=== PATIENT | female | born 1995 | race American Indian/Alaskan Native ===

== ENCOUNTER 2016-11-13 07:46 | Emergency (ER) | payer OTHER ==
[2016-11-13] MEDS ORDERED: ATIVAN IM PRN (08:30)
[2016-11-13] MEDS ORDERED: HALDOL IM PRN (08:30)
[2016-11-13] MEDS ORDERED: BENADRYL IM PRN (08:30)
--- NOTE | 2016-11-13 08:35 | Emergency Department Report ---
HPI - General Chief Complaint: Psych Time Seen by Provider: 11/13/16 08:19 - HPI HPI: Room 14 The patient is a 21-year-old female presenting with a chief complaint of "nervous breakdown." The patient's mother states she received a telephone call from the patient's boyfriend stating that "something was going on" with the patient. The mother states she could hear the patient screaming in the background. The boyfriend stated that the patient was seen days. Was in the house and she was screaming and urinating on the floor. The mother states when she arrived she found the patient outside him to take off her clothes. The patient states she felt as though there was a demon leaving her body. The mother states she had the placed the patient in the back seat of the car with the child [place] so the patient would not attempt to open the door. The patient currently states she feels fine. Patient currently denies suicidal or homicidal ideation. Patient does admit to visual hallucinations believing there are demons inside of her. The patient states she is having auditory hallucinations talking about her friends and family. The patient's mother has a history of bipolar disorder, depression, paranoid schizophrenia and schizoaffective disorder Location: Mental state Duration: [see above] Quality: Bizarre behavior Severity: Moderate Modifying factors: [see above] Context: [see above] Mode of transportation: [not driving] ED Past Medical Hx - Past Medical History Previous Medical History?: No - Surgical History Past Surgical History?: No - Family History Family history: no significant - Social History Smoking Status: Never Smoker Substance Use Type: None - Medications Home Medications: Home Medications Medication Instructions Recorded Confirmed Last Taken Type No Known Home Medications [No 11/13/16 11/13/16 Unknown History Reported Home Medications] ED Review of Systems ROS: Stated complaint: PSYCH/MH/EVAL Other details as noted in HPI Comment: All other systems reviewed and negative Constitutional: denies: chills, fever Eyes: denies: eye pain, eye discharge, vision change ENT: denies: ear pain, throat pain Respiratory: denies: cough, shortness of breath, wheezing Cardiovascular: denies: chest pain, palpitations Endocrine: no symptoms reported Gastrointestinal: denies: abdominal pain, nausea, diarrhea Genitourinary: denies: urgency, dysuria, discharge Musculoskeletal: denies: back pain, joint swelling, arthralgia Skin: denies: rash, lesions Neurological: denies: headache, weakness, paresthesias Psychiatric: auditory hallucinations, visual hallucinations. denies: homicidal thoughts, suicidal thoughts Hematological/Lymphatic: denies: easy bleeding, easy bruising Physical Exam - Physical Exam Vital Signs: Vital Signs 11/13/16 08:02 Temperature 99.8 F H Pulse Rate 140 H Blood Pressure 110/60 O2 Sat by Pulse 99 Oximetry Physical Exam: GENERAL: The patient is well-developed well-nourished female lying on stretcher not appearing to be in acute distress. [] HEENT: Normocephalic. Atraumatic. Extraocular motions are intact. Patient has moist mucous membranes. NECK: Supple. No meningitic signs are noted. There is no adenopathy noted. CHEST/LUNGS: Clear to auscultation. There is no respiratory distress noted. HEART/CARDIOVASCULAR: Regular. There is no tachycardia. There is no gallop rub or murmur. ABDOMEN: Abdomen is soft, nontender. Patient has normal bowel sounds. There is no abdominal distention. SKIN: There is no rash. There is no edema. There is no diaphoresis. NEURO: The patient is awake, alert, and oriented. The patient is cooperative. The patient has no focal neurologic deficits. The patient has normal speech. Cranial nerves II through XII grossly intact, no drift MUSCULOSKELETAL: There is no evidence of acute injury. ED Course Vital Signs 11/13/16 08:02 Temperature 99.8 F H Pulse Rate 140 H Blood Pressure 110/60 O2 Sat by Pulse 99 Oximetry ED Medical Decision Making - Lab Data Result diagrams: 11/13/16 08:28 11/13/16 08:28 - Radiology Data Radiology results: report reviewed (CT head), image reviewed (CT head) CT head (read by radiologist)-cranial CT scan within normal limits - Differential Diagnosis psychotic break, ICH, intracranial mass Critical care attestation.: If time is entered above; I have spent that time in minutes in the direct care of this critically ill patient, excluding procedure time. ED Disposition Clinical Impression: Psychosis Disposition: DC/TX-65 PSY HOSP/PSY UNIT Is pt being admited?: No Does the pt Need Aspirin: No Condition: Stable Referrals: PRIMARY CARE, [Primary Care Provider] - 3-5 Days
[2016-11-13 08:52] LABS: Basophils % (Auto) 0.4 % (0.0-1.8); Hematocrit 36.8 % (30.3-42.9); Mean Corpuscular HGB Conc 33 % (30-34); Mean Corpuscular Hemoglobin 26 pg (28-32); Mean Corpuscular Volume 81 fl (79-97); Platelet Count 262 K/mm3 (140-440); Red Blood Count 4.57 M/mm3 (3.65-5.03); Red Cell Distribution Width 16.4 % (13.2-15.2); White Blood Count 5.7 K/mm3 (4.5-11.0)
[2016-11-13 09:09] LABS: Anion Gap 19 mmol/L; Blood Urea Nitrogen 23 mg/dL (7-17); Calcium 9.6 mg/dL (8.4-10.2); Carbon Dioxide 23 mmol/L (22-30); Chloride 103.1 mmol/L (98-107); Glucose 157 mg/dL (65-100); Potassium 3.7 mmol/L (3.6-5.0); Sodium 141 mmol/L (137-145)
[2016-11-13 10:28] LABS: Urine Drugs of Abuse Note Disclamer
[2016-11-13 10:51] LABS: Bilirubin,Urine NEG (Negative); Blood,Urine NEG (Negative); Granular Casts,Urine 6 /LPF; Ketones,Urine TR mg/dL (Negative); Leukocyte Esterase,Urine NEG (Negative); Mucus,Urine 3+ /HPF; Nitrite,Urine NEG (Negative); Urobilinogen,Urine < 2.0 mg/dL (<2.0)
--- NOTE | 2016-11-13 11:15 | Cat Scan Report ---
CT HEAD WITHOUT CONTRAST: HISTORY: Altered mental status, medical psych clearance. Serial contiguous axial images were obtained through the cranium. Intravenous contrast material was not administered. The ventricles are normal in size and appearance. There is no mass effect or midline shift. No areas of abnormally increased or decreased attenuation are seen. No mass lesion is seen. The mastoid air cells and visualized portions of the sinuses are normal. IMPRESSION: Cranial CT scan within normal limits.
[2016-11-13] MEDS ORDERED: NACL 0.9% 1000 ML 1,000 ML IV ONE ×2 (11:34→12:28)
--- NOTE | 2016-11-13 11:34 | Consultation ---
History of Present Illness - Reason for Consult Consult date: 11/13/16 Reason for consult: psychosis Medications and Allergies Allergies Allergy/AdvReac Type Severity Reaction Status Date / Time No Known Allergies Allergy Unverified 11/13/16 08:11 Home Medications Medication Instructions Recorded Confirmed Last Taken Type No Known Home Medications [No 11/13/16 11/13/16 Unknown History Reported Home Medications] Active Meds: Active Medications Diphenhydramine HCl (Benadryl) 50 mg IM Q6H PRN PRN Reason: Agitation Haloperidol Lactate (Haldol) 10 mg IM Q8H PRN PRN Reason: Agitation Lorazepam (Ativan) 2 mg IM Q8H PRN PRN Reason: Agitation Mental Status Exam - Vital signs Last Vital Signs Temp 99.8 F H 11/13/16 08:02 Pulse 140 H 11/13/16 08:02 Resp 16 11/13/16 10:21 BP 110/60 11/13/16 08:02 Pulse Ox 99 11/13/16 10:21 Results Result Diagrams: 11/13/16 08:28 11/13/16 08:28 Abnormal lab results 11/13/16 11/13/16 11/13/16 Range/Units 08:28 08:28 08:28 MCH 26 L (28-32) pg RDW 16.4 H (13.2-15.2) % Lymph % (Auto) 11.4 L (13.4-35.0) % Lymph # 0.7 L (1.2-5.4) K/mm3 Seg Neutrophils % 83.9 H (40.0-70.0) % BUN 23 H (7-17) mg/dL Glucose 157 H (65-100) mg/dL Ur Specific Kingsley (1.003-1.030) Salicylates < 0.3 L (2.8-20.0) mg/dL 11/13/16 Range/Units 10:18 MCH (28-32) pg RDW (13.2-15.2) % Lymph % (Auto) (13.4-35.0) % Lymph # (1.2-5.4) K/mm3 Seg Neutrophils % (40.0-70.0) % BUN (7-17) mg/dL Glucose (65-100) mg/dL Ur Specific Kingsley 1.033 H (1.003-1.030) Salicylates (2.8-20.0) mg/dL All other labs normal. Assessment and Plan Assessment and plan: CHIEF COMPLAINT IN PATIENTS WORDS: HISTORY OF PRESENT ILLNESS REQUIRING ADMISSION TO INPATIENT LEVEL OF CARE: (Describe the onset of Illness, Intensity of Symptoms, and Circumstances Leading to Admission) This is a 21 year-old domiciled female who reports a formal PPH no formal past psychiatric history now presenting to the ER with her mother due to recent disorganized behaviors. Patient reports that her boyfriend was having another [place] and she consequently had nervous breakdown. Per review of medical record, patient was having auditory and visual hallucinations, she was having disorganized behaviors, she was speaking to herself very loudly. She was brought in to the ER by the assistance of her boyfriend and her mother. The ER physician did speak with the mother and was able to get some information from the patient during his examination. My clinical examination, patient was fairly withdrawn and perseverative. Patient was fairly paranoid and inappropriate during the clinical encounter with respect to how she was relating to myself. PSYCHIATRIC REVIEW OF SYSTEMS: Substance: None noted Depression: denies Zenaida: Labile moods, flight of ideas Psychosis: Positive auditory visual hallucinations and paranoia Anxiety/ OCD/ PTSD: Patient does not report Suicidality: Unknown and unable to assess Other Self-Injurious Behavior: Unknown and unable to assess Violent/ Aggressive Behavior: Recent increased agitation as noted and reported by mother CURRENT MEDICATIONS: ( Psychiatric and Non-psychiatric ) None ALLERGIES: NKDA PAST PSYCHIATRIC HISTORY: ( Prior Treatment, Precipitating Factors, Diagnosis, and Course of Treatment ) Inpatient: none Outpatient: none Prior Suicide Attempts: denies Prior Self-Injurious Behaviors: denies PAST PSYCHIATRIC MEDICATION TRIALS: Denies MEDICAL HISTORY: (Chronic and Acute Illnesses, Current Medical Treatment, Recent Hospitalizations) Denies HISTORY OF TRAUMA/ABUSE: Unknown DRUG / ALCOHOL ABUSE HISTORY: Unknown Detoxification / Withdrawal: none noted SOCIAL HISTORY: (Educational Level, Employment, Support System, Interpersonal Relationships) Lives with boyfriend. Mother seems supportive. FAMILY HISTORY: Psychiatric/Substance Abuse Family history of bipolar disorder, depression and schizophrenia as noted MENTAL STATUS EXAM: General Appearance: casually dressed in a hospital gown, in acute distress Sensorium/Consciousness: alert and responding to external stimuli Eye Contact: Poor Attitude / Behavior: Not well related, uncooperative and guarded Psychomotor & Musculoskeletal Activity: Psychomotor retardation noted Mood: Withdrawn Affect: Inappropriate and somewhat labile Speech / Language: delayed latency in speech noted, speech is nonspontaneous and nonsensical Thought Processes: Disorganized and perseverative Thought Content: Ruminative and anxious Perception: Appears to be responding to mental stimuli Orientation: person Judgment What would you do if you smelled smoke in a crowded movie theater?: poor/impulsive Insight: poor Intelligence Vocabulary, general fund of knowledge, educational level : Average Capacity of ADLs: Reduced ability to attend to ADLs due to her psychosis STRENGTHS: Family seems to be involved PSYCHOSOCIAL AND ENVIRONMENTAL STRESSORS: Reported infidelity of her boyfriend ADMITTING DIAGNOSES Psychiatric: Unspecified psychotic disorder Evidence for the following: Rule out bipolar disorder with psychotic features Rule out major depression with psychotic features Rule out schizophrenia Medical: n/a INITIAL PLAN OF CARE AND TREATMENT GOALS: Start loading dose Depakote ER 1000 mg at bedtime Start risperidone 1 mg at bedtime Placed patient on 1013 for inability to take care of herself due to acute psychosis
[2016-11-13] MEDS ORDERED: RisperDAL PO SCH (22:00)
[2016-11-14 09:47] VITALS: BP 125/91
--- NOTE | 2016-11-14 14:04 | Progress Note ---
Subjective - Reason for Consult Reason for consult: withdrawn, mute Mental Status Exam - Vital signs Last Vital Signs Temp 98.0 F 11/14/16 10:15 Pulse 106 H 11/14/16 10:15 Resp 18 11/14/16 10:15 BP 125/91 11/14/16 10:15 Pulse Ox 98 11/13/16 22:00 Assessment and Plan On clinical examination today, patient was minimally responsive. Patient was observed lying on the match in her room. Patient was not observably having any EPS or dystonic reaction to the recent start of the risperidone. We'll continue to monitor her closely and refer her for inpatient psychiatric care for a presentation of acute psychosis likely in the context of a bipolar mood disorder. MENTAL STATUS EXAM: General Appearance: casually dressed in a hospital gown, in acute distress Sensorium/Consciousness: alert and responding to external stimuli Eye Contact: Poor Attitude / Behavior: Not well related, uncooperative and guarded Psychomotor & Musculoskeletal Activity: Psychomotor retardation noted Mood: Withdrawn Affect: Inappropriate and somewhat labile Speech / Language: delayed latency in speech noted, speech is nonspontaneous and nonsensical Thought Processes: Disorganized and perseverative Thought Content: Ruminative and anxious Perception: Appears to be responding to mental stimuli Orientation: person Judgment What would you do if you smelled smoke in a crowded movie theater?: poor/impulsive Insight: poor Intelligence Vocabulary, general fund of knowledge, educational level : Average Capacity of ADLs: Reduced ability to attend to ADLs due to her psychosis INITIAL PLAN OF CARE AND TREATMENT GOALS: Continue Depakote ER 1000 mg at bedtime Continue risperidone 1 mg at bedtime Plan on checking LFTs, amylase and lipase as well as depakote level Patient on 1013 for inability to take care of herself due to acute psychosis Refer for inpatient psychiatric hospitalization for acute stabilization of current presentation
[2016-11-16 18:07] LABS: Vitamin D, 25-OH, Total 19 ng/mL (30-100)
== END 2016-11-14 18:00 ==
LOC: ED 07:46 → EEVIPCON 07:46 → ED 11-14 18:00
DX: F29 Unspecified psychosis not due to a substance or known physiological condition (principal)
CPT/HCPCS: 36415; 70450; 80048; 80307; 81001; 81025; 82306; 82607; 82747; 84439; 84443; 85025; 86592; 96360; 96361; 99285; G0480; J1630; J2060; J7030; 80320

== ENCOUNTER 2019-06-06 08:20 | Emergency (ER) | payer BC ==
[2019-06-06 09:31] LABS: Bacteria,Urine 1+ /HPF (Negative); Bilirubin,Urine NEG (Negative); Blood,Urine LG (Negative); Color,Urine Yellow (Yellow); Mucus,Urine 3+ /HPF; Protein,Urine <15 mg/dL mg/dL (Negative); Urobilinogen,Urine < 2.0 mg/dL (<2.0)
[2019-06-06 09:35] LABS: Amphetamine Screen,Urine PRESUMPTIVE NEGATIVE; Benzodiazepines Screen,Urine PRESUMPTIVE NEGATIVE; Cocaine Screen,Urine PRESUMPTIVE NEGATIVE; Methadone Screen,Urine PRESUMPTIVE NEGATIVE; Opiate Screen,Urine PRESUMPTIVE NEGATIVE
[2019-06-06 09:37] LABS: Basophils % (Auto) 0.7 % (0.0-1.8); Eosinophils % (Auto) 0.1 % (0.0-4.3); Hematocrit 36.9 % (30.3-42.9); Hemoglobin 12.3 gm/dl (10.1-14.3); Lymphocytes # (Auto) 0.9 K/mm3 (1.2-5.4); Lymphocytes % (Auto) 19.5 % (13.4-35.0); Mean Corpuscular HGB Conc 33 % (30-34); Mean Corpuscular Volume 83 fl (79-97); Monocytes # (Auto) 0.2 K/mm3 (0.0-0.8); Monocytes % (Auto) 4.8 % (0.0-7.3); Platelet Count 294 K/mm3 (140-440); Red Blood Count 4.45 M/mm3 (3.65-5.03); Red Cell Distribution Width 15.2 % (13.2-15.2)
[2019-06-06 09:55] LABS: BUN/Creatinine Ratio 8; Blood Urea Nitrogen 7 mg/dL (7-17); Calcium 9.8 mg/dL (8.4-10.2); Hemolysis Index 3
[2019-06-06 10:07] LABS: Cannabinoid Screen,Urine PRESUMPTIVE POSITIVE
[2019-06-06] MEDS ORDERED: SULFAMETHOXAZOLE/TRIMETHOPRIM 800/160MG DS TAB PO ONE (16:24)
--- NOTE | 2019-06-06 16:47 | Emergency Department Report ---
ED General Adult HPI - General Chief complaint: Psych Stated complaint: MH EVAL Time Seen by Provider: 06/06/19 16:07 Source: patient Mode of arrival: Ambulatory Limitations: No Limitations - History of Present Illness Initial comments: The patient presents to the emergency department with her mother for acute onset of paranoia and unresponsiveness. Patient has a history of schizophrenia and has been noncompliant with her medications for the last year. Patient denies auditory or visual hallucinations. Patient also denies suicidal or homicidal ideations. His and the patient states all spoke and appears to be following images and anemia others cannot see. -: unknown Severity scale (0 -10): 0 Improves with: none Worsens with: none Associated Symptoms: denies other symptoms Treatments Prior to Arrival: none - Related Data Home Medications Medication Instructions Recorded Confirmed Last Taken No Known Home Medications [No 11/13/16 11/13/16 Unknown Reported Home Medications] Allergies Allergy/AdvReac Type Severity Reaction Status Date / Time No Known Allergies Allergy Unverified 11/13/16 08:11 ED Review of Systems ROS: Stated complaint: MH EVAL Other details as noted in HPI Constitutional: denies: chills, fever Eyes: denies: eye pain, eye discharge, vision change ENT: denies: ear pain, throat pain Respiratory: denies: cough, shortness of breath, wheezing Cardiovascular: denies: chest pain, palpitations Endocrine: no symptoms reported Gastrointestinal: denies: abdominal pain, nausea, diarrhea Genitourinary: denies: urgency, dysuria, discharge Musculoskeletal: denies: back pain, joint swelling, arthralgia Skin: denies: rash, lesions Neurological: denies: headache, weakness, paresthesias Psychiatric: denies: anxiety, depression Hematological/Lymphatic: denies: easy bleeding, easy bruising ED Past Medical Hx - Past Medical History Hx Psychiatric Treatment: Yes - Social History Smoking Status: Never Smoker Substance Use Type: Alcohol, Marijuana - Medications Home Medications: Home Medications Medication Instructions Recorded Confirmed Last Taken Type No Known Home Medications [No 11/13/16 11/13/16 Unknown History Reported Home Medications] ED Physical Exam - General Limitations: No Limitations General appearance: alert, other (confused and paranoid) - Head Head exam: Present: atraumatic, normocephalic - Eye Eye exam: Present: normal appearance - ENT ENT exam: Present: mucous membranes moist - Neck Neck exam: Present: normal inspection - Respiratory Respiratory exam: Present: normal lung sounds bilaterally. Absent: respiratory distress - Cardiovascular Cardiovascular Exam: Present: regular rate, normal rhythm. Absent: systolic murmur, diastolic murmur, rubs, gallop - GI/Abdominal GI/Abdominal exam: Present: soft, normal bowel sounds - Extremities Exam Extremities exam: Present: normal inspection - Back Exam Back exam: Present: normal inspection - Neurological Exam Neurological exam: Present: alert, oriented X3, CN II-XII intact. Absent: motor sensory deficit - Psychiatric Psychiatric exam: Absent: homicidal ideation, suicidal ideation - Skin Skin exam: Present: warm, dry, intact, normal color. Absent: rash ED Course Vital Signs 06/06/19 06/06/19 08:35 08:41 Temperature 98.7 F 98.7 F Pulse Rate 93 H 96 H Respiratory 20 16 Rate Blood Pressure 135/86 135/86 O2 Sat by Pulse 99 100 Oximetry ED Medical Decision Making - Lab Data Result diagrams: 06/06/19 09:12 06/06/19 09:12 Lab Results 06/06/19 06/06/19 06/06/19 Range/Units 09:08 09:08 09:12 WBC 4.5 (4.5-11.0) K/mm3 RBC 4.45 (3.65-5.03) M/mm3 Hgb 12.3 (10.1-14.3) gm/dl Hct 36.9 (30.3-42.9) % MCV 83 (79-97) fl MCH 28 (28-32) pg MCHC 33 (30-34) % RDW 15.2 (13.2-15.2) % Plt Count 294 (140-440) K/mm3 Lymph % (Auto) 19.5 (13.4-35.0) % Placer % (Auto) 4.8 (0.0-7.3) % Eos % (Auto) 0.1 (0.0-4.3) % Baso % (Auto) 0.7 (0.0-1.8) % Lymph # 0.9 L (1.2-5.4) K/mm3 Placer # 0.2 (0.0-0.8) K/mm3 Eos # 0.0 (0.0-0.4) K/mm3 Baso # 0.0 (0.0-0.1) K/mm3 Seg Neutrophils % 74.9 H (40.0-70.0) % Seg Neutrophils # 3.4 (1.8-7.7) K/mm3 Sodium (137-145) mmol/L Potassium (3.6-5.0) mmol/L Chloride (98-107) mmol/L Carbon Dioxide (22-30) mmol/L Anion Gap mmol/L BUN (7-17) mg/dL Creatinine (0.7-1.2) mg/dL Estimated GFR ml/min BUN/Creatinine Ratio % Glucose (65-100) mg/dL Calcium (8.4-10.2) mg/dL HCG, Qual (Negative) Urine Color Yellow (Yellow) Urine Turbidity Cloudy (Clear) Urine pH 6.0 (5.0-7.0) Ur Specific Premier 1.014 (1.003-1.030) Urine Protein <15 mg/dl (Negative) mg/dL Urine Glucose (UA) Neg (Negative) mg/dL Urine Ketones Tr (Negative) mg/dL Urine Blood Lg (Negative) Urine Nitrite Neg (Negative) Urine Bilirubin Neg (Negative) Urine Urobilinogen < 2.0 (<2.0) mg/dL Ur Leukocyte Esterase Lg (Negative) Urine WBC (Auto) 76.0 H (0.0-6.0) /HPF Urine RBC (Auto) 4.0 (0.0-6.0) /HPF U Epithel Cells (Auto) 13.0 (0-13.0) /HPF Urine Bacteria (Auto) 1+ (Negative) /HPF Urine Mucus 3+ /HPF Salicylates (2.8-20.0) mg/dL Urine Opiates Screen Presumptive negative Urine Methadone Screen Presumptive negative Acetaminophen (10.0-30.0) ug/mL Ur Barbiturates Screen Presumptive negative Ur Phencyclidine Scrn Presumptive negative Ur Amphetamines Screen Presumptive negative U Benzodiazepines Scrn Presumptive negative Urine Cocaine Screen Presumptive negative U Marijuana (THC) Screen Presumptive positive Drugs of Abuse Note Disclamer Plasma/Serum Alcohol (0-0.07) % 06/06/19 06/06/19 06/06/19 Range/Units 09:12 09:12 09:12 WBC (4.5-11.0) K/mm3 RBC (3.65-5.03) M/mm3 Hgb (10.1-14.3) gm/dl Hct (30.3-42.9) % MCV (79-97) fl MCH (28-32) pg MCHC (30-34) % RDW (13.2-15.2) % Plt Count (140-440) K/mm3 Lymph % (Auto) (13.4-35.0) % Placer % (Auto) (0.0-7.3) % Eos % (Auto) (0.0-4.3) % Baso % (Auto) (0.0-1.8) % Lymph # (1.2-5.4) K/mm3 Placer # (0.0-0.8) K/mm3 Eos # (0.0-0.4) K/mm3 Baso # (0.0-0.1) K/mm3 Seg Neutrophils % (40.0-70.0) % Seg Neutrophils # (1.8-7.7) K/mm3 Sodium 140 (137-145) mmol/L Potassium 4.1 (3.6-5.0) mmol/L Chloride 103.8 (98-107) mmol/L Carbon Dioxide 20 L (22-30) mmol/L Anion Gap 20 mmol/L BUN 7 (7-17) mg/dL Creatinine 0.9 (0.7-1.2) mg/dL Estimated GFR > 60 ml/min BUN/Creatinine Ratio 8 % Glucose 114 H (65-100) mg/dL Calcium 9.8 (8.4-10.2) mg/dL HCG, Qual (Negative) Urine Color (Yellow) Urine Turbidity (Clear) Urine pH (5.0-7.0) Ur Specific Premier (1.003-1.030) Urine Protein (Negative) mg/dL Urine Glucose (UA) (Negative) mg/dL Urine Ketones (Negative) mg/dL Urine Blood (Negative) Urine Nitrite (Negative) Urine Bilirubin (Negative) Urine Urobilinogen (<2.0) mg/dL Ur Leukocyte Esterase (Negative) Urine WBC (Auto) (0.0-6.0) /HPF Urine RBC (Auto) (0.0-6.0) /HPF U Epithel Cells (Auto) (0-13.0) /HPF Urine Bacteria (Auto) (Negative) /HPF Urine Mucus /HPF Salicylates < 0.3 L (2.8-20.0) mg/dL Urine Opiates Screen Urine Methadone Screen Acetaminophen < 5.0 L (10.0-30.0) ug/mL Ur Barbiturates Screen Ur Phencyclidine Scrn Ur Amphetamines Screen U Benzodiazepines Scrn Urine Cocaine Screen U Marijuana (THC) Screen Drugs of Abuse Note Plasma/Serum Alcohol (0-0.07) % 06/06/19 06/06/19 Range/Units 09:12 09:12 WBC (4.5-11.0) K/mm3 RBC (3.65-5.03) M/mm3 Hgb (10.1-14.3) gm/dl Hct (30.3-42.9) % MCV (79-97) fl MCH (28-32) pg MCHC (30-34) % RDW (13.2-15.2) % Plt Count (140-440) K/mm3 Lymph % (Auto) (13.4-35.0) % Placer % (Auto) (0.0-7.3) % Eos % (Auto) (0.0-4.3) % Baso % (Auto) (0.0-1.8) % Lymph # (1.2-5.4) K/mm3 Placer # (0.0-0.8) K/mm3 Eos # (0.0-0.4) K/mm3 Baso # (0.0-0.1) K/mm3 Seg Neutrophils % (40.0-70.0) % Seg Neutrophils # (1.8-7.7) K/mm3 Sodium (137-145) mmol/L Potassium (3.6-5.0) mmol/L Chloride (98-107) mmol/L Carbon Dioxide (22-30) mmol/L Anion Gap mmol/L BUN (7-17) mg/dL Creatinine (0.7-1.2) mg/dL Estimated GFR ml/min BUN/Creatinine Ratio % Glucose (65-100) mg/dL Calcium (8.4-10.2) mg/dL HCG, Qual Negative (Negative) Urine Color (Yellow) Urine Turbidity (Clear) Urine pH (5.0-7.0) Ur Specific Premier (1.003-1.030) Urine Protein (Negative) mg/dL Urine Glucose (UA) (Negative) mg/dL Urine Ketones (Negative) mg/dL Urine Blood (Negative) Urine Nitrite (Negative) Urine Bilirubin (Negative) Urine Urobilinogen (<2.0) mg/dL Ur Leukocyte Esterase (Negative) Urine WBC (Auto) (0.0-6.0) /HPF Urine RBC (Auto) (0.0-6.0) /HPF U Epithel Cells (Auto) (0-13.0) /HPF Urine Bacteria (Auto) (Negative) /HPF Urine Mucus /HPF Salicylates (2.8-20.0) mg/dL Urine Opiates Screen Urine Methadone Screen Acetaminophen (10.0-30.0) ug/mL Ur Barbiturates Screen Ur Phencyclidine Scrn Ur Amphetamines Screen U Benzodiazepines Scrn Urine Cocaine Screen U Marijuana (THC) Screen Drugs of Abuse Note Plasma/Serum Alcohol < 0.01 (0-0.07) % - Medical Decision Making Medically cleared UTI 1013 applied Accepted to [facility] Critical care attestation.: If time is entered above; I have spent that time in minutes in the direct care of this critically ill patient, excluding procedure time. ED Disposition Clinical Impression: Hallucinations, UTI (urinary tract infection) Disposition: DC/TX-65 PSY HOSP/PSY UNIT Is pt being admited?: No Does the pt Need Aspirin: No Condition: Stable Referrals: PRIMARY CARE, [Primary Care Provider] - 3-5 Days
[2019-06-06] MEDS ORDERED: ZIPRASIDONE 20 MG CAP PO ONE (17:06)
[2019-06-06 20:17] VITALS: BP 118/84
== END 2019-06-06 20:00 ==
LOC: ED 08:20
DX: R44.3 Hallucinations, unspecified (principal); N39.0 Urinary tract infection, site not specified; F12.10 Cannabis abuse, uncomplicated
CPT/HCPCS: 36415; 80048; 80307; 80320; 81001; 84703; 85025; 87086; G0480